=== PATIENT | female | born 1955 | race Caucasian/White ===

== ENCOUNTER 2016-03-19 16:08 | Emergency (ER) | payer OTHER ==
[~2016-03-19] VITALS: Ht 157.5 cm; Wt 69.0 kg
[2016-03-19 16:19] VITALS: Ht 157.5 cm; Wt 69.0 kg
--- NOTE | 2016-03-19 17:38 | ERD ---
ER Documentation Chief Complaint Date/Time DATE: 03/19/16 TIME: 17:34 Chief Complaint right leg pain 2 days HPI The patient is a 60-year-old female here for evaluation of a tiny lump to the lateral aspect of her right knee which she noticed incidentally when scratching the area 2 days ago. She denies any pain, numbness or tingling, redness, swelling, broken skin, or any decrease in range of motion or function. This differs from initial report on triage. She denies any recent illness, accident , trauma, or fall. She denies any symptoms at this time. She states that she is worried about a "blood clot". ROS All systems reviewed and are negative except as per history of present illness. Allergies Allergies: Coded Allergies: erythromycin base (Verified Allergy, Intermediate, RASH, 03/19/16) PMhx/Soc Medical and Surgical Hx: pt denies Medical Hx History of Surgery: Yes (TOTAL ABD HYSTERECTOMY) Hx Alcohol Use: No Hx Substance Use: No Hx Tobacco Use: No (SMOKES SOCIALLY) Smoking Status: Light tobacco smoker Physical Exam Vitals Vital Signs Date Time Temp Pulse Resp B/P Pulse Ox O2 Delivery O2 Flow Rate FiO2 03/19/16 16:19 97.8 97 18 164/80 96 Physical Exam INITIAL VITAL SIGNS: Reviewed by me, elevated bp GENERAL: Alert. Well developed and well nourished. No respiratory distress HEAD: Head is normocephalic. Atraumatic. EYES: EOMI. PERRL. No scleral icterus. No conjunctival injection. ENT: External ears, nose, and mouth normal. Nasal passages patent. Moist mucous membranes. NECK: Supple. Full range of motion. Trachea midline. RESPIRATORY: No tachypnea. Clear to auscultation bilaterally. No wheezing, rales , or rhonchi. CV: Regular rate and rhythm. No murmurs, rubs, or gallops ABDOMEN: Soft, non-distended, non-tender. Bowel sounds normal in all quadrants. BACK: No CVA tenderness. Full ROM. EXTREMITIES: + Subcentimeter solid mass to the lateral aspect of the right knee. No tenderness to palpation. No fluctuance. Full range of motion. Sensation intact. Strength 5/5. No redness, swelling, or other signs of infection. No obvious deformity. No clubbing or cyanosis. No edema. SKIN: Warm and dry. No diaphoresis. No obvious rashes or lesions. NEUROLOGIC: Alert and oriented x 3. Appropriate. Face is symmetric. Speech is normal. Moves all extremities equally. Procedures/MDM Nursing Notes Reviewed Previous Medical Records requested via [employer]. EMERGENCY DEPARTMENT COURSE / MEDICAL DECISION MAKING: The patient comes to the ED secondary to small lump to the lateral aspect of the right knee 2 days. Differential diagnosis upon initial evaluation includes but is not limited to: Cyst, lipoma, DVT, and others. The case was discussed with supervising physician Dr. Cerna who saw and examined the patient at bedside. As the patient was concerned about a "blood clot", a venous ultrasound was ordered. Soft tissue ultrasound was also ordered. Soft tissue ultrasound as per radiology report: normal Venous ultrasound as per radiology report: normal Based on patient's history of present illness and physical examination the decision was made to discharge. There is no evidence of life threatening injuries or illnesses at this time. Her physical exam is most consistent with a cyst versus lipoma. Final impression: Mass to the right knee On re-examination, patient resting in no distress, stable vital signs, reports feeling better and safe for discharge with outpatient follow up with PMD in 2-3 days. Patient given return precautions. Patient verbalized understanding and agreed to return precautions. All of her questions and concerns were addressed prior to discharge. She agrees with the plan of care. She was provided copies of her venous and soft tissue ultrasound results. Patient's blood pressure was elevated but appears stable without evidence of hypertensive emergency, end organ damage, chest pain or shortness of breath. The patient was counseled about the risks of untreated hypertension and urged to pursue outpatient monitoring and therapy in 2-3 days with their primary care physician. Departure Diagnosis: Primary Impression: Mass of right knee Condition: Stable PAU RHOADES NP Mar 19, 2016 17:38
--- NOTE | 2016-03-19 18:00 | RADRPT ---
PROCEDURE: US right lower extremity veins. CLINICAL INDICATION: Right leg pain and swelling. TECHNIQUE: Multiple longitudinal and transverse images of the right lower extremity veins were obt ained with valencia scale and color Doppler imaging. The common femoral vein, femoral vein, and poplitea l vein were evaluated. 2D grayscale measurements with compression sonography, pulsed Doppler, color Doppler, and pulsed Doppler with augmentation. COMPARISON: No prior studies are available for comparison. FINDINGS: The right common femoral, femoral and popliteal veins are normally compressible throughout. Color f low demonstrates normal filling of the vessels. Normal waveforms are visualized and there is normal response to augmentation. IMPRESSION: 1. No evidence of deep vein thrombosis involving the right lower extremity. RPTAT: QQ .Chandana Hernandez MD, MD Date Time Electronically viewed and signed by .Chandana Hernandez MD, on 03/19/2016 17:59 .R/
--- NOTE | 2016-03-19 18:00 | RADRPT ---
PROCEDURE: Ultrasound of the soft tissues of the right knee. CLINICAL INDICATION: Palpable lesion in the right knee laterally. TECHNIQUE: High-resolution sonography of the right knee laterally at the site of the palpable lesi on was performed in the axial and sagittal planes. COMPARISON: None FINDINGS: There is no fluid collection or mass. There is no abnormality at the site of the palpable lesion. IMPRESSION: 1. No abnormality at the site of the palpable lesion in the right knee. 2. Any further management regarding the palpable lesion should be based on clinical grounds. RPTAT: QQ .Chandana Hernandez MD, MD Date Time Electronically viewed and signed by .Chandana Hernandez MD, on 03/19/2016 18:00 .R/
== END 2016-03-19 18:28 | disposition home or self-care (01) ==
LOC: FTE 16:08
DX: R22.41 Localized swelling, mass and lump, right lower limb (principal); F17.210 Nicotine dependence, cigarettes, uncomplicated
CPT/HCPCS: 76536; 93971; Z7502

== ENCOUNTER 2017-02-13 14:32 | Emergency (ER) | payer OTHER ==
[~2017-02-13] VITALS: Ht 160 cm; Wt 67.7 kg
[2017-02-13 14:36] VITALS: Ht 160 cm; Wt 67.7 kg
[2017-02-13] MEDS: ASPIRIN 325 MG TAB PO STA ×2 (15:54→15:55)
[2017-02-13 15:55] LABS: BASOPHILS % 0.5 % (0.0-2.0); EOSINOPHILS # 0.1 10^3/ul (0.0-0.5); EOSINOPHILS % 1.3 % (0.0-7.0); HEMATOCRIT 37.1 % (37.0-47.0); HEMOGLOBIN 12.5 g/dl (12.0-16.0); LYMPHOCYTES # 2.6 10^3/ul (0.8-2.9); LYMPHOCYTES % 41.8 % (15.0-51.0); MEAN CORPUSCULAR HGB CONC 33.7 g/dl (32.0-37.0); MEAN CORPUSCULAR VOLUME 89.2 fl (82.0-101.0); MEAN PLATELET VOLUME 9.2 fl (7.4-10.4); MONOCYTE # 0.3 10^3/ul (0.3-0.9); MONOCYTES % 4.4 % (0.0-11.0); NEUTROPHIL # 3.3 10^3/ul (1.6-7.5); NEUTROPHILS % 51.7 % (39.0-77.0); PLATELET COUNT 305 10^3/UL (140-415); RED BLOOD COUNT 4.16 10^6/ul (4.20-5.40); RED CELL DISTRIBUTION WIDTH 13.1 % (11.5-14.5); WHITE BLOOD COUNT 6.3 10^3/ul (4.8-10.8)
[2017-02-13] MEDS ORDERED: AMIT25TA9 PO (16:11)
[2017-02-13] MEDS ORDERED: OMEP20CA16 PO (16:11)
[2017-02-13 16:19] LABS: ALANINE AMINOTRANSFERASE 63 IU/L (13-69); ALBUMIN 4.5 g/dl (3.3-4.9); ALKALINE PHOSPHATASE 62 IU/L (42-121); ANION GAP 15 (8-16); ASPARTATE AMINO TRANSFERASE 29 IU/L (15-46); BILIRUBIN,INDIRECT 0.1 mg/dl (0-1.1); BILIRUBIN,TOTAL 0.1 mg/dl (0.2-1.3); BLOOD UREA NITROGEN 13 mg/dl (7-20); CALCIUM 9.4 mg/dl (8.4-10.2); CARBON DIOXIDE 26 mmol/L (21-31); CHLORIDE 104 mmol/L (97-110); CREATININE 0.66 mg/dl (0.44-1.00); GLUCOSE 145 mg/dl (70-220); POTASSIUM 4.1 mmol/L (3.5-5.1); SODIUM 141 mmol/L (135-144); TOTAL PROTEIN 7.5 g/dl (6.1-8.1)
[2017-02-13 16:31] LABS: TROPONIN-I < 0.012 ng/ml (0.00-0.12)
--- NOTE | 2017-02-13 16:37 | RADRPT ---
PROCEDURE: XR Chest. CLINICAL INDICATION: Shortness of breath TECHNIQUE: Single portable view of the chest was obtained COMPARISON: No priors for comparison FINDINGS: The trachea is midline. The cardiac silhouette and pulmonary vascularity are within normal limits. T he lungs are clear. The costophrenic angles are sharp. IMPRESSION: 1. No evidence of acute cardiopulmonary disease. RPTAT: AAPP Physician Stacie Date Time Electronically viewed and signed by Jannie Bledsoe Physician on 02/13/2017 16:36 AGAPITO/
[2017-02-13 17:33] VITALS: PULSE 86
--- NOTE | 2017-02-13 17:37 | ERD ---
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 He states that she is feeling some tight feeling in her neck and at the same time she has a difficulty swallowing. She is also having some hand trembling at the same time. She states that she has had this before several times off-and-on over the past 10 years and has happened before when she has had anxiety. She had the same symptoms 4 years ago and was admitted into the hospital and had a stress test that was negative. She says she is under a lot of stress and worry because her sister is getting and she will be flying back home to visit her in 10 days. She is not having any chest pain no palpitations no nausea no dizziness no radiation of pain. She has no weakness, diaphoresis. She says the symptom in her neck last about 2-3 seconds and goes away. She has had it for 2-3 days but took her amitriptyline this morning and she has not had any symptoms at all. She thinks this is more of an anxiety type of reaction herself ROS All systems reviewed and are negative except as per history of present illness. Medications Home Meds Reported Medications Omeprazole* (Omeprazole*) 20 Mg Capsule.dr, 20 MG PO AC BREAKFAST, #30 CAP 02/13/17 Amitriptyline Hcl* (Amitriptyline Hcl*) 25 Mg Tablet, 25 MG PO BID, #30 TAB 02/13/17 Allergies Allergies: Coded Allergies: erythromycin base (Verified Allergy, Intermediate, RASH, 02/13/17) aspirin (Verified Adverse Reaction, Intermediate, causes gastritis, ) PMhx/Soc History of Surgery: Yes (TOTAL ABD HYSTERECTOMY) Anesthesia Reaction: No Hx Neurological Disorder: No Hx Respiratory Disorders: No Hx Cardiac Disorders: No Hx Psychiatric Problems: Yes (depression, anxiety) Hx Miscellaneous Medical Probl: No Hx Alcohol Use: No Hx Substance Use: No Hx Tobacco Use: No (SMOKES SOCIALLY) Smoking Status: Never smoker FmHx Family History: No coronary disease Physical Exam Vitals Vital Signs Date Time Temp Pulse Resp B/P Pulse Ox O2 Delivery O2 Flow Rate FiO2 02/13/17 14:36 99.3 105 18 139/90 96 Physical Exam Const: Well-developed, well-nourished Head: Atraumatic, normocephalic Eyes: Normal Conjunctiva, PERRLA, EOMI, normal sclera, no nystagmus ENT: Normal External Ears, Nose and Mouth, moist mucus membranes. Neck: Full range of motion. No meningismus, no lymphadenopathy. Resp: Clear to auscultation bilaterally, no wheezing, rhonchi, rales Cardio: Regular rate and rhythm, no murmurs, S1 S2 present Abd: Soft, non tender x 4, non distended. Normal bowel sounds, no guarding or rebound, no pulsitile abdominal masses or bruits Skin: No petechiae or rashes, no ecchymosis , no maculopapular rash Back: No midline or flank tenderness Ext: No cyanosis, or edema, FROM x 4, normal inspection, neurovascularly intact x 4 Neur: Awake and alert, STR 5/5 x 4, sensation intact x 4, no focal findings, cerebellum intact Psych: Normal Mood and Affect Result Diagram: 02/13/17 1540 02/13/17 1540 Results 24 hrs Laboratory Tests Test 02/13/17 15:40 White Blood Count 6.310^3/ul Red Blood Count 4.1610^6/ul Hemoglobin 12.5g/dl Hematocrit 37.1% Mean Corpuscular Volume 89.2fl Mean Corpuscular Hemoglobin 30.0pg Mean Corpuscular Hemoglobin Concent 33.7g/dl Red Cell Distribution Width 13.1% Platelet Count 98680^3/UL Mean Platelet Volume 9.2fl Neutrophils % 51.7% Lymphocytes % 41.8% Monocytes % 4.4% Eosinophils % 1.3% Basophils % 0.5% Nucleated Red Blood Cells % 0.0/100WBC Neutrophils # 3.310^3/ul Lymphocytes # 2.610^3/ul Monocytes # 0.310^3/ul Eosinophils # 0.110^3/ul Basophils # 0.010^3/ul Nucleated Red Blood Cells # 0.010^3/ul Sodium Level 141mmol/L Potassium Level 4.1mmol/L Chloride Level 104mmol/L Carbon Dioxide Level 26mmol/L Anion Gap 15 Blood Urea Nitrogen 13mg/dl Creatinine 0.66mg/dl Glucose Level 145mg/dl Calcium Level 9.4mg/dl Total Bilirubin 0.1mg/dl Direct Bilirubin 0.00mg/dl Indirect Bilirubin 0.1mg/dl Aspartate Amino Transf (AST/SGOT) 29IU/L Alanine Aminotransferase (ALT/SGPT) 63IU/L Alkaline Phosphatase 62IU/L Troponin I < 0.012ng/ml Total Protein 7.5g/dl Albumin 4.5g/dl Globulin 3.00g/dl Albumin/Globulin Ratio 1.50 Current Medications Medications (Trade) Dose Ordered Sig/Pati Route PRN Reason Start Time Stop Time Status Last Admin Dose Admin Aspirin (Aspirin) 325 mg ONCE STAT PO 02/13/17 15:33 02/13/17 15:34 DC Procedures/MDM EKG: Rate/Rhythm: Sinus tachycardia heart rate 103 QRS, ST, QT: NORMAL OK, QRS, QT] Impression: NORMAL EKG PROCEDURE: XR Chest. CLINICAL INDICATION: Shortness of breath TECHNIQUE: Single portable view of the chest was obtained COMPARISON: No priors for comparison FINDINGS: The trachea is midline. The cardiac silhouette and pulmonary vascularity are within normal limits. The lungs are clear. The costophrenic angles are sharp. IMPRESSION: 1. No evidence of acute cardiopulmonary disease. RPTAT: AAPP Physician Stacie Date Time Electronically viewed and signed by Physician Stacie on 02/13/2017 16:36 JL/ CC: JENIFFER BEAVERS DO Cardiac workup is negative so far. Had extensive discussion at bedside with patient for 20 minutes discussing her symptoms. The patient was offered admission to the hospital but she declined. After discussing it seems more this is an anxiety type of reaction. She says she took her amitriptyline and she feels better. She says she has had symptoms for the past 3 days and the symptoms only last a few seconds and go away but after taking amitriptyline she has not had any symptoms today at all. Discussed with her cardiac signs and symptoms to return and follow-up Departure Diagnosis: Primary Impression: Anxiety reaction Condition: Stable Patient Instructions: Anxiety Reaction, Chest Pain, Uncertain Cause JENIFFER BEAVERS DO Feb 13, 2017 17:37
== END 2017-02-13 17:44 | disposition home or self-care (01) ==
LOC: E/R 14:32
DX: F41.1 Generalized anxiety disorder (principal); R06.02 Shortness of breath; R40.2142 Coma scale, eyes open, spontaneous, at arrival to emergency department; R40.2252 Coma scale, best verbal response, oriented, at arrival to emergency department; R40.2362 Coma scale, best motor response, obeys commands, at arrival to emergency department
CPT/HCPCS: 36415; 71010; 80053; 84484; 85025; 93005; Z7502; Z7610

== ENCOUNTER 2018-05-29 17:35 | Emergency (ER) | payer OTHER ==
[~2018-05-29] VITALS: Ht 165.1 cm; Wt 62.0 kg
[~2018-05-29 17:35] MED LIST: AMIT25TA9 PO; OMEP20CA16 PO
[2018-05-29 17:38] VITALS: Ht 165.1 cm; Wt 62.0 kg
--- NOTE | 2018-05-29 21:45 | ERD ---
ER Documentation Chief Complaint Chief Complaint vaginal pain x 1 day HPI 62-year-old female presents with some questions about possible prolapsed vagina. Patient has a history of hysterectomy oophorectomy several years ago. She has an nutrition helper in [facility]. She did reduce the vaginal prolapse and is concerned that she may waited too long and is concerned about complications. Is been over 48 hours. Patient has no pain, no fevers, no vomiting. Patient is waiting for authorization for gynecology from her primary doctor. Patient has no dysuria, bleeding, additional symptoms. ROS All systems reviewed and are negative except as per history of present illness. Medications Home Meds Reported Medications Omeprazole* (Omeprazole*) 20 Mg Capsule.dr, 20 MG PO AC BREAKFAST, #30 CAP 02/13/17 Amitriptyline Hcl* (Amitriptyline Hcl*) 25 Mg Tablet, 25 MG PO BID, #30 TAB 02/13/17 Allergies Allergies: Coded Allergies: erythromycin base (Verified Allergy, Intermediate, RASH, 02/13/17) aspirin (Verified Adverse Reaction, Intermediate, causes gastritis, 02/13/17) PMhx/Soc History of Surgery: Yes (TOTAL ABD HYSTERECTOMY) Anesthesia Reaction: No Hx Neurological Disorder: No Hx Respiratory Disorders: No Hx Cardiac Disorders: No Hx Psychiatric Problems: Yes (depression, anxiety) Hx Miscellaneous Medical Probl: No Hx Alcohol Use: No Hx Substance Use: No Hx Tobacco Use: No (SMOKES SOCIALLY) FmHx Family History: No diabetes, No coronary disease, No other Physical Exam Vitals Vital Signs Date Temp Pulse Resp B/P (MAP) Pulse Ox O2 O2 Flow FiO2 Time Delivery Rate 05/29/18 98.1 87 16 106/76 98 17:38 (86) Physical Exam Const: No acute distress Head: Atraumatic Eyes: Normal Conjunctiva ENT: Normal External Ears, Nose and Mouth. Neck: Full range of motion. No meningismus. Resp: Clear to auscultation bilaterally Cardio: Regular rate and rhythm, no murmurs Abd: Soft, non tender, non distended. Normal bowel sounds. Patient declines pelvic examination. Skin: No petechiae or rashes Back: No midline or flank tenderness Ext: No cyanosis, or edema Neur: Awake and alert Psych: Normal Mood and Affect Procedures/MDM Patient presents with a presumed history of vaginal prolapse which was self reduced 2 days ago. Patient only has questions regarding potential complication as she is worried she may have waited too long before reducing. Patient was provided reassurance that if she has no symptoms there is likely no complications of vaginal prolapse as she likely self reduced without complications. Patient was advised that it is okay to reduce vaginal prolapse if she is comfortable at home. She should return for fevers, vomiting, worsening pain, bleeding, new worsening symptoms otherwise with primary doctor and gynecology as an process. Patient to return if she is unable to reduce her vaginal prolapse. Patient is otherwise well-appearing and asymptomatic currently. The patient was stable with no new complaints during the ER course. Clinically, there is no current evidence to suggest meningitis, sepsis, acute abdomen, pneumonia, stroke, acute coronary syndrome, pulmonary embolism, aortic dissection or any other emergent condition appearing to require further evaluation or hospitalization. Patient counseled regarding my diagnostic impression and care plan. Prior to discharge all questions answered. Pt agrees with treatment plan and understands strict return precautions. Pt is instructed to follow up with primary care provider within 24-48 hours. Precautionary instructions provided including instructions to return to the ER if not improving or for any worsening or changing symptoms or concerns. Departure Diagnosis: Primary Impression: Vaginal prolapse Condition: Stable Patient Instructions: What Is Pelvic Organ Prolapse?, Pelvic Organ Prolapse: Surgery for Vaginal Vault Prolapse Referrals: [facility] [address] [facility] [address] [place], [place] [id number] OFFICE FAX DR.ABUSLEME REBEKAH [address] [place], [place] [id number] [facility] [address] [place], [place] [phone] [facility] [address] [facility] [phone] [address] [address] [place] [phone] [facility] [address] [place], [place] [id number] [facility] [id number] - [address] [facility] [address] [address] RIGGINS, RUDY [address] [facility], [facility] [address] [address] VERAS, [facility] [address] [place] [address] Additional Instructions: See tower erector helper for further evaluation and treatment. Recheck for fevers, vomiting, worsening pain, new symptoms. ROSALINDA FERGUSON MD May 29, 2018 21:45
[2018-05-29 21:54] VITALS: BP 150/98; PULSE 77; RESP 16
== END 2018-05-29 21:55 | disposition home or self-care (01) ==
LOC: FTE 17:35
DX: N81.10 Cystocele, unspecified (principal)
CPT/HCPCS: 99282